=== PATIENT | female | born 1945 | race Caucasian/White ===

== ENCOUNTER → 2017-12-08 | Outpatient (CLI) | payer MEDICARE, BC ==
[~2017-12-08] MED LIST: ALLO300 PO; ASPI81CH PO; ASPI81EC PO; BIOTIN PO; CHOL10002 PO; Cvs Heartburn1 EACH PO; GLUCOSAMINE PO; HYDACE10B PO; LISI20 PO; LOVA40 PO; META800 PO; METF500 PO; MSM PO; OMEGA KRILL OIL PO; OMEP20ER PO; PROBIOTIC PO; PROBIOTIC1 EAC1 PO; PSYL5.85P PO; TYLENOL 325 MG PO; VITAMIN D3 PO; [UNRECOGNIZED DRUG - OTHER] BOTHEYES; [UNRECOGNIZED DRUG - OTHER] PO; [UNRECOGNIZED DRUG - OTHER] PO; [UNRECOGNIZED DRUG - OTHER] PO
== END | disposition home or self-care (01) ==
LOC: OLS 16:21 → LAB SHORT 16:21
DX: N76.4 Abscess of vulva (principal)
CPT/HCPCS: 87070; 87075; 87205

== ENCOUNTER → 2017-12-19 | Outpatient (CLI) | payer MEDICARE, BC | END | disposition home or self-care (01) | LOC: LAB SHORT 11:59 → LAB 11:59 | PROVIDERS: Nurse Practitioner Women's Health | DX: Z12.4 Encounter for screening for malignant neoplasm of cervix (principal) | CPT/HCPCS: 87624; G0123 ==

== ENCOUNTER → 2019-01-04 | Outpatient (CLI) | payer MEDICARE, BC ==
[2019-01-06 14:07] LABS: HPV 16 Negative (Negative); HPV 18 Negative (Negative); HPV OTHER HR TYPES Negative (Negative)
== END | disposition home or self-care (01) ==
LOC: LAB 16:04 → LAB SHORT 16:04
PROVIDERS: Nurse Practitioner Women's Health
DX: Z12.4 Encounter for screening for malignant neoplasm of cervix (principal); B97.7 Papillomavirus as the cause of diseases classified elsewhere; Z91.89 Other specified personal risk factors, not elsewhere classified
CPT/HCPCS: 87624; G0123

== ENCOUNTER 2022-03-29 13:03 | Day surgery (SDC) | payer MEDICARE, BC ==
[~2022-03-29] VITALS: Ht 152.4 cm; Wt 108.5 kg
[2022-03-29] MEDS ORDERED: ATOR10 (13:15)
[2022-03-29] MEDS ORDERED: META800 (13:16)
[2022-03-29] MEDS ORDERED: ERGO50000 (13:16)
[2022-03-29] MEDS ORDERED: GENICIN500 M1 (13:16)
[2022-03-29] MEDS ORDERED: OMEP20ER (13:17)
== END 2022-03-29 14:10 | disposition home or self-care (01) ==
LOC: ORSCSDS 13:03
PROVIDERS: Anesthesiology
PROC: 3E0R33Z Introduction of Anti-inflammatory into Spinal Canal, Percutaneous Approach (ICD-10-PCS; principal; 2022-03-29 14:00)
DX: M51.16 Intervertebral disc disorders with radiculopathy, lumbar region (principal); M54.50 Low back pain, unspecified; I10 Essential (primary) hypertension; E78.00 Pure hypercholesterolemia, unspecified; M41.9 Scoliosis, unspecified; I12.9 Hypertensive chronic kidney disease with stage 1 through stage 4 chronic kidney disease, or unspecified chronic kidney disease; N18.30 Chronic kidney disease, stage 3 unspecified; E66.01 Morbid (severe) obesity due to excess calories; Z68.42 Body mass index [BMI] 45.0-49.9, adult; Z79.84 Long term (current) use of oral hypoglycemic drugs; Z79.899 Other long term (current) drug therapy
CPT/HCPCS: J1040